=== PATIENT | female | born 1955 | race Caucasian/White ===

== ENCOUNTER 2016-11-16 11:53 | Emergency (ER) | payer OTHER ==
[~2016-11-16] VITALS: Ht 152.4 cm; Wt 74.0 kg
[2016-11-16 11:59] VITALS: BP 105/59; PULSE 76; RESP 19; TEMP 98.6; O2SAT 97
[2016-11-16] MEDS ORDERED: SODIUM CHLOR 0.9% 1000 ML INJ 1,000 ML IV ONE (12:15)
--- NOTE | 2016-11-16 12:17 | PD ---
HPI Chief Complaint: General Weakness Time Seen by Provider: 12:04 Travel History International Travel<30 days: No Contact w/Intl Traveler<30days: No Traveled to known affect area: No History of Present Illness HPI This 61 year-old woman, presents to the emergency department after feeling weak and lightheaded at the [facility] [employer]. She reports that for the past day or so she 's felt nauseous and generally weak. She went out to the [employer] [facility] [employer] today and was walking around when she began to feel progressively more weak. EMS was called and found her sitting up, appearing pale: Diaphoretic. They report initial blood pressure in the 70s. She is a history of CAD, with stents. She is on [place]. She also has high cholesterol and diabetes. States she is on a lot of medicines which shows normal they are. She does not believe she is on a diuretic. She's not had any dark black stools or blood in her stools. She has had recent cough cold symptoms over the past several days with increase purulent drainage from both eyes, increased cough, some congestion symptoms. She also states that she drove down from [place] about 3 days ago and had a long drive. She has a bad knee on the right. She denies any increase in knee pain, calf pain or swelling, or history of DVT. History Past Medical History Narrative Medical CAD, history of stent Hyperlipidemia Diabetes Social History Tobacco Use: No Allergies-Medications (Allergen,Severity, Reaction): Coded Allergies: Sulfa (Sulfonamide Antibiotics) (Verified Allergy, Severe, Anaphylaxis, 11/16/16) Reported Meds & Prescriptions Reported Meds & Active Scripts Active Reported Lisinopril 5 Mg Tab 5 Mg PO DAILY Protonix (Pantoprazole Sodium) 40 Mg Tab 40 Mg PO DAILY Coreg (Carvedilol) 12.5 Mg Tab 12.5 Mg PO BID Glimepiride 1 Mg Tab 1 Mg PO DAILY Take with breakfast or first main meal Lipitor (Atorvastatin Calcium) 40 Mg Tab 40 Mg PO HS Metformin ER (Metformin HCl) 500 Mg Jj 1,500 Mg PO DAILY With evening meal Brilinta (Ticagrelor) 90 Mg Tab 90 Mg PO BID Review of Systems Except as stated in HPI: all other systems reviewed are Neg Physical Exam Narrative GENERAL: Well-appearing 60 year-old woman, no acute distress. SKIN: Focused skin assessment warm/dry. HEAD: Atraumatic. Normocephalic. EYES: Pupils equal and round. No scleral icterus. No injection or drainage. ENT: No nasal bleeding or discharge. Mucous membranes pink and moist. NECK: Trachea midline. No JVD. CARDIOVASCULAR: Regular rate and rhythm. No murmur appreciated. RESPIRATORY: No accessory muscle use. Clear to auscultation. Breath sounds equal bilaterally. GASTROINTESTINAL: Abdomen soft, non-tender, nondistended. Hepatic and splenic margins not palpable. MUSCULOSKELETAL: No obvious deformities. No edema. NEUROLOGICAL: Awake and alert. No obvious cranial nerve deficits. Motor grossly within normal limits. Normal speech. Data Data Last Documented VS Vital Signs Date Time Temp Pulse Resp B/P (MAP) Pulse Ox O2 Delivery O2 Flow Rate FiO2 11/16/16 14:28 77 17 117/66 (83) 97 Room Air 11/16/16 11:59 98.6 Orders Orders Complete Blood Count With Diff (11/16/16 12:05) Comprehensive Metabolic Panel (11/16/16 12:05) Troponin I (11/16/16 12:05) D-Dimer (11/16/16 12:05) Iv Access Insert/Monitor (11/16/16 12:05) Chest, Single Ap (11/16/16 ) Electrocardiogram (11/16/16 ) Sodium Chlor 0.9% 1000 Ml Inj (Ns 1000 M (11/16/16 12:15) Labs Laboratory Tests Test 11/16/16 12:15 White Blood Count 13.5 TH/MM3 Red Blood Count 4.12 MIL/MM3 Hemoglobin 10.8 GM/DL Hematocrit 34.1 % Mean Corpuscular Volume 82.7 FL Mean Corpuscular Hemoglobin 26.2 PG Mean Corpuscular Hemoglobin Concent 31.7 % Red Cell Distribution Width 15.0 % Platelet Count 156 TH/MM3 Mean Platelet Volume 8.9 FL Neutrophils (%) (Auto) 72.5 % Lymphocytes (%) (Auto) 15.5 % Monocytes (%) (Auto) 10.2 % Eosinophils (%) (Auto) 1.4 % Basophils (%) (Auto) 0.4 % Neutrophils # (Auto) 9.8 TH/MM3 Lymphocytes # (Auto) 2.1 TH/MM3 Monocytes # (Auto) 1.4 TH/MM3 Eosinophils # (Auto) 0.2 TH/MM3 Basophils # (Auto) 0.1 TH/MM3 CBC Comment DIFF FINAL Differential Comment D-Dimer Quantitative (PE/DVT) 0.39 MG/L FEU Blood Urea Nitrogen 12 MG/DL Creatinine 0.92 MG/DL Random Glucose 124 MG/DL Total Protein 7.2 GM/DL Albumin 2.9 GM/DL Calcium Level 7.7 MG/DL Alkaline Phosphatase 113 U/L Aspartate Amino Transf (AST/SGOT) 22 U/L Alanine Aminotransferase (ALT/SGPT) 26 U/L Total Bilirubin 0.5 MG/DL Sodium Level 140 MEQ/L Potassium Level 4.1 MEQ/L Chloride Level 108 MEQ/L Carbon Dioxide Level 24.0 MEQ/L Anion Gap 8 MEQ/L Estimat Glomerular Filtration Rate 62 ML/MIN Troponin I LESS THAN 0.02 NG/ML MDM Medical Decision Making Medical Screen Exam Complete: Yes Emergency Medical Condition: Yes Interpretation(s) My review of EKG: Normal sinus rhythm at a rate of 73, normal axis, normal intervals, no acute ischemia. LABS: CBC was will for mild leukocytosis, mild anemia. CMP remarkable for mildly elevated glucose. Troponin negative. Time or less than 0.5 Mild prominence of cardiac silhouette, otherwise negative. Differential Diagnosis Lightheadedness, dehydration, URI, anemia, electrolyte abnormality, PE, ACS, other Narrative Course Medical decision making INITIAL: Is a 60 year-old woman presents emergent department with weakness, URI symptoms, hypotension. She had a recent prolonged car ride, or any brace someone knee, and has unexplained hypotension. She denies any chest pain or trouble breathing. PE seems unlikely. We will check a d-dimer. Symptoms likely related to URI and congestion and feeling poorly. Could be coupled with dehydration from driving. We'll check labs, IV fluids, EKG and troponin, likely discharge. FINAL: Well-appearing young woman, lightheadedness and low blood pressure likely from dehydration. Looks overall well. No evidence of infection, KS, PE , or other. Diagnosis Primary Impression: Lightheadedness Additional Impression: Nonspecific low blood pressure reading Additional Instructions: Drink plenty of fluids stay well-hydrated. Up with her primary doctor when he returns home if you're not feeling completely well. Return to the emergency department for any chest pain, trouble breathing, passing out, or any other new or worsening symptoms. Med/Other Pt SpecificInfo: No Change to Meds Disposition: 01 DISCHARGE HOME Condition: Stable Caleb Sage MD Nov 16, 2016 12:17
[2016-11-16] MEDS ORDERED: LIPI40TA PO (12:44)
[2016-11-16] MEDS ORDERED: GLIM1TAB PO (12:44)
[2016-11-16] MEDS ORDERED: PROT40TA PO (12:44)
[2016-11-16] MEDS ORDERED: CARV12.5 PO (12:44)
[2016-11-16] MEDS ORDERED: BRIL90TA PO (12:44)
[2016-11-16] MEDS ORDERED: LISI-519 PO (12:44)
[2016-11-16] MEDS ORDERED: METF500T4 PO (12:44)
[2016-11-16 12:49] LABS: AUTOMATED NEUTROPHIL # 9.8 TH/MM3 (1.8-7.7); BASOPHIL # 0.1 TH/MM3 (0-0.2); BASOPHIL % 0.4 % (0.0-2.0); EOSINOPHIL # 0.2 TH/MM3 (0-0.4); EOSINOPHIL % 1.4 % (0.0-4.0); HEMATOCRIT 34.1 % (35.0-46.0); HEMO FLAGS DIFF FINAL; LYMPH % 15.5 % (9.0-44.0); LYMPHOCYTE # 2.1 TH/MM3 (1.0-4.8); MEAN CELL VOLUME 82.7 FL (80.0-100.0); MEAN CORPUSCULAR HEMOGLOBIN 26.2 PG (27.0-34.0); MEAN CORPUSCULAR HGB CONC 31.7 % (32.0-36.0); MONO % 10.2 % (0.0-8.0); NEUT % 72.5 % (16.0-70.0); PLATELET COUNT 156 TH/MM3 (150-450); RED BLOOD COUNT 4.12 MIL/MM3 (4.00-5.30); WHITE BLOOD COUNT 13.5 TH/MM3 (4.0-11.0)
--- NOTE | 2016-11-16 13:11 | RADRPT ---
EXAM DATE/TIME: 11/16/2016 12:37 [facility] COMPARISON: No previous studies available for comparison. INDICATIONS : Short of breath, nausea, and dizziness. MEDICAL HISTORY : Diabetes mellitus type II. SURGICAL HISTORY : Cardiac stent. ENCOUNTER: Initial ACUITY: 1 day PAIN SCORE: 0/10 LOCATION: Bilateral chest FINDINGS: A single view of the chest demonstrates the lungs to be symmetrically aerated without evidence of mas s, infiltrate or effusion. Mild prominence to the cardiac silhouette.. Osseous structures are intac t. CONCLUSION: Mild prominence to cardiac silhouette otherwise negative. Royal Borges MD FACR on November 16, 2016 at 13:09 Board Certified Radiologist. This report was verified electronically.
[2016-11-16 13:15] LABS: ALKALINE PHOSPHATASE 113 U/L (45-117); ALT (GPT) 26 U/L (10-53); TOTAL BILIRUBIN ADULT 0.5 MG/DL (0.2-1.0)
[2016-11-16 13:17] LABS: ANION GAP 8 MEQ/L (5-15); AST (GOT) 22 U/L (15-37); BLOOD UREA NITROGEN 12 MG/DL (7-18); CHLORIDE 108 MEQ/L (98-107); GLOMERULAR FILTRATION RATE 62 ML/MIN (>89); POTASSIUM 4.1 MEQ/L (3.5-5.1); SODIUM (NA) 140 MEQ/L (136-145)
[2016-11-16 14:28] VITALS: BP 117/66; PULSE 77; RESP 17; O2SAT 97
--- NOTE | 2016-11-16 17:20 | EKG ---
Date Performed: 11/16/2016 Time Performed: 12:10:48 PTAGE: 61 years EKG: Sinus rhythm BORDERLINE LEFT AXIS DEVIATION LOW QRS VOLTAGE IN PRECORDIAL LEADS POSSIBLE RIGHT VENTRICULAR CONDUC TION DELAY BORDERLINE ECG INTERPRETATION BASED ON A DEFAULT AGE OF 40 YEARS NO PREVIOUS TRACING DOCTOR: Caleb Mcarthur Interpretating Date/Time 11/16/2016 17:20:24
== END 2016-11-16 15:04 | disposition home or self-care (01) ==
LOC: NEPC 11:53
DX: R42 Dizziness and giddiness (principal); R03.1 Nonspecific low blood-pressure reading; R11.0 Nausea; R06.02 Shortness of breath; E11.9 Type 2 diabetes mellitus without complications; E78.5 Hyperlipidemia, unspecified; I25.10 Atherosclerotic heart disease of native coronary artery without angina pectoris; Z79.84 Long term (current) use of oral hypoglycemic drugs
CPT/HCPCS: 71010; 80053; 84484; 85025; 85379; 93005; 96360; 96361; 99285; J7030